=== PATIENT | female | born 1965 | race Caucasian/White ===

== ENCOUNTER 2020-07-04 17:49 | Emergency (ER) | payer MEDICAID ==
[~2020-07-04] VITALS: Ht 162.6 cm; Wt 72.7 kg
[2020-07-04 18:42] VITALS: BP 172/89
== END 2020-07-04 18:43 | disposition home or self-care (01) ==
LOC: EMS 17:52
DX: B02.9 Zoster without complications (principal)
CPT/HCPCS: 99283; Z7502